=== PATIENT | female | born 1985 | race Caucasian/White ===

== ENCOUNTER 2019-10-17 08:00 | Outpatient (CLI) | payer BC, SELFPAY ==
--- NOTE | 2019-10-19 14:51 | SLEEP_ITS ---
Home sleep test. DATE OF STUDY: 10/17/2019 ORDERING PHYSICIAN: Josue Au M.D. REASON FOR THE STUDY: Hypersomnia. HISTORY: The patient is 34-year-old female, 5 feet 9 inches tall, weighing 273 pounds with a body mass index of 40.3. She has complaints including loud snoring for years, worse in the last 8 months or so. She has been waking up with her mouth and throat dry. Many nights, she drinks 1 or 2 bottles of water during the night. She wakes up tired and sometimes wakes up with headaches. She has a brother and father with sleep apnea on CPAP. She wakes up during the night and has excessive daytime sleepiness. She frequently wakes up at night with heartburn, belching or coughing. She occasionally awakens from sleep feeling short of breath. She frequently has trouble sleeping with a cold. She rarely wakes up gasping for breath at night. She occasionally sweats excessively at night. She rarely notices her heart pounding or beating irregularly at night. She rarely falls asleep during the day, never involuntarily, never while driving. She does not have loss of muscle tone with strong emotion. She denies daytime difficulties due to excessive sleepiness. She does not feel paralyzed on waking or falling asleep. She does not have vivid dreamlike scenes upon awakening or falling asleep. She rarely feels afraid to go to sleep. She rarely has nightmares, rarely remembers her dreams and rarely has racing thoughts. She occasionally feels sad, depressed, anxious, occasionally has muscular tension. She denies noticing parts of her body jerking at night, kicking at night or having crawly achy feelings in the legs. There is no leg pain at night. She rarely has morning jaw pain. She occasionally grinds her teeth at night. She is not bothered by pain during the day and is not awaken with pain at night. She rarely wakes up feeling stiff in the morning with sore achy muscles. She rarely has pain in the spine and neck. She has headaches, depression, and feels tense. She occasionally takes antacids. She occasionally has feelings of panic and dizziness. She does not take naps. A short nap is not refreshing. She is drowsy in the morning for 1 hour or longer. MEDICAL COMORBIDITIES: Heavy snoring, morbid obesity. MEDICATIONS: Vitamin D once a week. HABITS: Never smoked. Caffeine, 1 or 2 beverages a day. Occasional alcohol. Normal bedtime is 10:00 p.m., taking 20 minutes to fall asleep, waking 5 times at night for 5 to 10 minutes. She will toss and turn, take a drink of water, check on the baby and make a bottle. She awakens in the morning at 6 o'clock. On the weekends, she goes to bed an hour later and wakes up an hour later. DESCRIPTION OF THE STUDY: On the Corder Sleepiness Scale, the score is 13. This was conducted as an unattended type 3 portable home sleep test using a 4 channel monitoring, respiratory effort, snoring, saturation and heart rate. Duration was 8 hours 41 minutes. The study was scored using CMS guidelines. The AHI was 20.6, elevated. Oxygen desaturation index 18.5. Lowest desaturation 78%. Average saturation 94%. There were 30 apneas. 25 apneas or 83% were obstructive, 5 apneas or 17% were central. There were 149 hypopneas, 3676 snoring events with 161 desaturations and 15 minutes spent below 88% saturation, which was 3% of the study. Heart rate ranged from 49 to 120. IMPRESSION: This study provides evidence of at least moderate obstructive sleep apnea syndrome G47.33 with an AHI of 20.6, minimum desaturation to 78%, which is very low, majority of events obstructive and desaturation with 15 minutes spent below 88%. The patient may benefit from APAP with pressures between 5 and 15 cm water pressure, an appropriate ma
== END 2019-10-17 08:01 | disposition home or self-care (01) ==
LOC: ANHCSM 08:02
PROVIDERS: PCP Family Medicine; Visit Provider Family Medicine
DX: G47.10 Hypersomnia, unspecified (principal); G47.33 Obstructive sleep apnea (adult) (pediatric)
CPT/HCPCS: 95806

== ENCOUNTER 2022-10-26 12:08 | Emergency (ER) | payer BC, SELFPAY ==
--- NOTE | 2022-10-26 12:09 | ED.FEMALEGU ---
HPI - Female Genitourinary General Chief complaint: Urogenital-Female Stated complaint: Female Urogenital Time Seen by Provider: 10/26/22 12:09 Source: patient Mode of arrival: ambulatory Limitations: no limitations History of Present Illness HPI Narrative: Beatriz is a 37-year-old female patient presenting to clinic today with complaints of urinary frequency for 1-2 days. She reports she was swimming at [employer] over the weekend. Denies any burning with urination, back pain, or abdominal pain. No fever or chills. Related Data Home Medications Medication Instructions Recorded Confirmed semaglutide (weight loss) 2.4 2.4 mg subcut DIRECTED 10/26/22 10/26/22 mg/0.75 mL subcutaneous pen injector (Wegovy) Allergies Allergy/AdvReac Type Severity Reaction Status Date / Time naproxen AdvReac Mild UPSET Verified 11/20/18 12:25 STOMACH Review of Systems Review of Systems: Pertinent positives per HPI. Patient denies any fever, chills, rash, headache, visual changes, dizziness, cough, runny nose, sore throat, shortness of breath, chest pain, palpitations, nausea, vomiting, diarrhea, constipation, abdominal pain. PMFSH Comments At the time of my signature, I reviewed and agree with the nursing past medical, surgical, social, and family history. There is no relevant family history pertinent to the patient complaint. Exam Narrative: General: Well-developed, overweight, in no apparent distress. Head: Normocephalic, atraumatic. Cardio: Regular rate and rhythm, s1 and s2 normal, no murmur appreciated. Resp: Clear to auscultation bilaterally, no rhonchi, rales, wheezing or rubs. Abdomen: Soft, pliable, bowel sounds present in all quadrants, non-tender to palpation, no organomegly, no CVAT tenderness. Course Course Emergency Course: Portions of this record may have been created with voice recognition software. Level of Care: Express Care Visit Vital Signs Vital signs: Vital signs reviewed MDM - Female Genitourinary MDM Narrative Medical decision making narrative: At the time of visit patient is resting comfortably on the exam table. UA was performed and shows 1+ leukocyte and trace of intact blood. Will place the patient on Bactrim DS and sent for culture. Supportive measures were discussed with the patient she voiced understanding discharge instructions agrees to treatment plan. Differential Diagnosis Differential diagnosis: Likely urinary tract infection, cystitis and other (Overactive bladder syndrome) Discharge Plan Discharge Clinical Impression: Urinary tract infection Qualifiers: Urinary tract infection type: acute cystitis Hematuria presence: with hematuria Qualified Code(s): N30.01 - Acute cystitis with hematuria Patient Disposition: Home, Self-Care Condition: Stable Instructions: Antibiotic Form, Urinary Tract Infection in Women (ED) Additional Instructions: UA positive for 1+ leukocytes and trace of blood. Will send for culture. Take Bactrim ds 1 tab every 12 hours times 7 days Increase fluids and stay well hydrated Wipe front to back. May use wet wipes. Avoid tub baths If sexually active- pee before and after intercourse. Wear cotton panties Avoid tight clothing up against the genitals Follow up with your PCP in 1 week if symptoms persist. Prescriptions: New sulfamethoxazole-trimethoprim [Bactrim DS] 800-160 mg tablet 1 tablet PO Q12H 7 Days Qty: 14 0RF No Action Wegovy 2.4 mg/0.75 mL pen injector 2.4 mg SUBCUT DIRECTED Follow-up/Referrals: Sole,FRANCISCO J Humphrey [Primary Care Provider] - Time of Disposition: 12:38 Quality NIHSS Nursing Documentation ED NIHSS nursing documentation: reviewed/agree
[2022-10-26 12:23] VITALS: BP 136/82; PULSE 74; RESP 17; TEMP 36.5; O2SAT 100
== END 2022-10-26 12:40 | disposition home or self-care (01) ==
PROVIDERS: Emergency Provider Nurse Practitioner Family; PCP Nurse Practitioner
DX: N30.01 Acute cystitis with hematuria (principal)
CPT/HCPCS: 81003; 87086; 99213; G0463

== ENCOUNTER 2023-10-17 11:08 | Emergency (ER) | payer BC, SELFPAY ==
--- NOTE | ~2023-10-17 | XR_ITS ---
Right Hand Technique: PA, oblique, and lateral views were obtained. Clinical History: Fifth metacarpal pain Findings: Questional tiny avulsion fracture probably from the base of the fifth proximal phalanx. No other fracture or dislocation seen. Osseous alignment is anatomic. Joint spaces are preserved. Soft t issues are unremarkable. Impression: Questionable tiny avulsion fracture from the base of the fifth proximal phalanx. Reviewed, dictated and finalized at location M. Impression: Questionable tiny avulsion fracture from the base of the fifth proximal phalanx .
[2023-10-17 11:20] VITALS: BP 134/77; PULSE 70; RESP 18; TEMP 36.7; O2SAT 100
--- NOTE | 2023-10-17 11:23 | ED.UPPEXIN ---
HPI - Extremity Injury (Upper) General Chief Complaint: Extremity Injury, Upper Stated Complaint: R hand pain Time Seen by Provider: 10/17/23 11:23 Source: patient Mode of arrival: ambulatory Limitations: no limitations History of Present Illness HPI narrative: 38-year-old female presents with complaint of pain to proximal aspect of right little finger. Patient reports 1 month ago she got up in the middle the night to help her child used the bathroom and hit to right hand on wall. Went on vacation shortly after and just assume that pain would get better. Patient states she continues to have pain, stiffness. Range of motion and neurovascularly intact. All systems reviewed and negative except as noted above. Related Data Home Medications Medication Instructions Recorded Confirmed No Home Medications 10/17/23 10/17/23 Allergies Allergy/AdvReac Type Severity Reaction Status Date / Time naproxen AdvReac Mild UPSET Verified 10/17/23 11:29 STOMACH Review of Systems Review of Systems: CONSTITUTIONAL: Denies fever, chills, or sweats. EYES: Denies visual changes, redness, or discharge. ENT: Denies rhinorrhea, congestion, sore throat, or otalgia. CARDIOVASCULAR: Denies chest pain, palpitations, or edema. RESPIRATORY: Denies cough or dyspnea. GASTROINTESTINAL: Denies abdominal pain, nausea, vomiting, or diarrhea. GENITOURINARY: Denies dysuria or hematuria. SKIN: Denies rash or itching. MUSCULOSKELETAL: Denies back pain, joint pain, or myalgia. Reports pain to right hand. NEUROLOGIC: Denies headache, numbness, or weakness. PSYCHIATRIC: Denies anxiety or depression. All other systems reviewed are negative, except as documented in HPI. PMFSH Comments At time of signature, agree with nursing past medical, surgical, social and family history. There is no relevant family history pertinent to the presenting complaint. Exam Narrative: GENERAL: This is a well-nourished, well-developed patient, in no apparent distress. HEAD: normocephalic, atraumatic. EYES: PERRL. Sclera clear/white. Vision is grossly intact. EARS: External ears normal NOSE: External nose normal NECK: Neck supple, non-tender without lymphadenopathy, masses or thyromegaly. CARDIOVASCULAR: Regular rate and rhythm without murmurs, gallops, or rubs. RESPIRATORY: Clear to auscultation. Breath sounds equal bilaterally. No wheezes, rales, or rhonchi. SKIN: warm, Dry, intact with no suspicious lesions or rash, good texture and turgor. NEURO: awake, alert, and oriented to person, place and time. There were no obvious focal neurologic abnormalities. EXTREMITIES: Mild swelling noted to right 5th MCP. Tenderness to proximal Flomax and right MCP of right 5th finger. Range of motion and distal neurovascularly intact. Course Course Level of Care: Express Care Visit Vital Signs Vital signs: Vital Signs Temperature 36.7 C 10/17/23 11:20 Pulse Rate 70 10/17/23 11:20 Respiratory Rate 18 10/17/23 11:20 Blood Pressure 134/77 10/17/23 11:20 Pulse Oximetry 100 10/17/23 11:20 Oxygen Delivery Room Air 10/17/23 11:20 Temperature 36.7 C 10/17/23 11:20 Pulse Rate 70 10/17/23 11:20 Respiratory Rate 18 10/17/23 11:20 Blood Pressure 134/77 10/17/23 11:20 Pulse Oximetry 100 10/17/23 11:20 Oxygen Delivery Room Air 10/17/23 11:20 Reviewed MDM - Extremity Injury (Upper) MDM Narrative Medical decision making narrative: Patient is aware of diagnosis, understands and agrees to treatment plan. Anticipatory guidance given. Patient agrees to follow-up as directed and is aware of reasons to seek care at the emergency department. Portions of this record may have been created with voice recognition software discussed x-ray with patient. Patient placed in finger splint. Referred to Orthopedics for follow-up. Differential Diagnosis Differential diagnosis: Likely dislocation of finger and fracture of hand Imaging
== END 2023-10-17 12:00 | disposition home or self-care (01) ==
PROVIDERS: Emergency Provider Nurse Practitioner Family; PCP Nurse Practitioner
DX: S62.606A Fracture of unspecified phalanx of right little finger, initial encounter for closed fracture (principal); W22.09XA Striking against other stationary object, initial encounter
CPT/HCPCS: 29130; 73130; 99214; G0463